=== PATIENT | female | born 1960 | race Caucasian/White ===

== ENCOUNTER → 2024-02-11 06:27 | Day surgery (SDC) | payer OTHER, SELFPAY | LOC: GI 06:27 | PROVIDERS: ATTENDING PHYSICIAN Internal Medicine Gastroenterology | DX: Z12.11 Encounter for screening for malignant neoplasm of colon (principal); K57.30 Diverticulosis of large intestine without perforation or abscess without bleeding; K64.0 First degree hemorrhoids; K63.3 Ulcer of intestine; K63.5 Polyp of colon; K51.40 Inflammatory polyps of colon without complications; K52.9 Noninfective gastroenteritis and colitis, unspecified | CPT/HCPCS: 45385; 45380; 88305 ==